=== PATIENT | female | born 1940 | race Caucasian/White ===

== ENCOUNTER 2021-02-26 05:32 | Outpatient (CLI) | payer MEDICARE ==
[~2021-02-26] VITALS: Ht 157.5 cm; Wt 81.3 kg
[2021-02-26] MEDS ORDERED: METO-333 PO (16:00)
[2021-02-26] MEDS ORDERED: CELE200C PO (16:00)
[2021-02-26] MEDS ORDERED: CLOP75TA69 PO (16:00)
[2021-02-26] MEDS ORDERED: ROSU10TA28 PO (16:00)
[2021-02-26] MEDS ORDERED: ACET325C7 PO (16:00)
[2021-02-26] MEDS ORDERED: PANT40SU PO (16:00)
== END 2021-02-26 16:52 | disposition home or self-care (01) ==
LOC: PREOP 05:32
PROVIDERS: ATTEND Otolaryngology Otolaryngology/Facial Plastic Surgery
DX: Z01.818 Encounter for other preprocedural examination (principal)

== ENCOUNTER 2021-03-07 07:27 | Observation (INO) | payer MEDICARE ==
[~2021-03-07] VITALS: Ht 158 cm; Wt 81.4 kg
[~2021-03-07 07:27] MED LIST: ACET325C7 PO; CELE200C PO; CLOP75TA69 PO; METO-333 PO; PANT40SU PO; ROSU10TA28 PO
[2021-03-07] MEDS ORDERED: ONDANSETRON 4 MG/2 ML (SDV) Z0FRAN ONE (07:28)
[2021-03-07] MEDS ORDERED: proPOfol 200 MG/20 ML (DIPRIVAN) VIAL IV ONE (07:28)
[2021-03-07] MEDS ORDERED: fentaNYL INJ 100 MCG/2 ML AMP ONE (07:28)
[2021-03-07] MEDS ORDERED: LIDOCAINE PF 2% 5 ML (XYLOCAINE) VIAL ONE (07:28)
[2021-03-07] MEDS ORDERED: SEVOFLURANE (ULTANE) 15 ML INHAL SOLN ONE (07:28)
[2021-03-07] MEDS ORDERED: LACTATED RINGERS 1,000 ML IV PRN (07:30)
[2021-03-07] MEDS ORDERED: ceFAZolin INJECTION 1,000 MG in WATER (STERILE) FOR INJECTION 10 ML IV ONE (07:30)
--- OUTSIDE RECORDS SUMMARY | 2021-03-07 07:30 | XMS REPORT | Clinical Summary ---
Author Author [facility] Organization 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
[2021-03-07 07:34] VITALS: BP 155/109
[2021-03-07 07:42] VITALS: BP 167/139
[2021-03-07] MEDS ORDERED: FAMOTIDINE 20MG/2ML IV (PEPCID) IV ONE (07:45)
[2021-03-07] MEDS ORDERED: ONDANSETRON 4 MG/2 ML (SDV) Z0FRAN IV ONE (07:45)
--- NOTE | 2021-03-07 07:46 | Progress Note-Pre Operative ---
Pre-Operative Progress Note H&P Reviewed The H&P was reviewed, patient examined and no changes noted. Date Seen by Provider: Mar 07, 2021 Time Seen by Provider: 07:45 Date H&P Reviewed: Mar 07, 2021 Time H&P Reviewed: 07:45 Pre-Operative Diagnosis: Excision of Recurrent Basal cEll of Nose BIMAL SAEED MD Mar 07, 2021 07:46
[2021-03-07] MEDS ORDERED: LIDOCAINE/EPI 1%-1:100,000 (XYLOCAINE) 20ML ONE (07:47)
[2021-03-07] MEDS ORDERED: MUPIROCIN 2% OINT 22 GM (BACTROBAN) TUBE ONE (07:47)
[2021-03-07] MEDS ORDERED: BSS 15 ML ONE (07:56)
[2021-03-07] MEDS ORDERED: ceFAZolin INJECTION 1,000 MG VIAL IV ONE (08:00)
[2021-03-07 08:12] VITALS: BP 130/113
[2021-03-07] MEDS ORDERED: ENOXAPARIN 100 MG/1 ML (LOVENOX) SYR SC SCH (08:15)
--- NOTE | 2021-03-07 08:19 | Progress Note ---
Standard Progress Note Progress Notes/Assess & Plan Date Seen by a Provider: Mar 07, 2021 Time Seen by a Provider: 08:15 Progress/Assessment & Plan ENT-Carter patient noted to have tachycrdai and increased blood pressure despite taking her metropolol this am. EKG-revealed new onset a. fib surgery cancelled-patient will be admitted for care DR Jamison consented to admit the patient to ICU and I talked with Dr Dalton Lovenox 1mg/kg given subcut and will keep patient NPO per DR Dalton once heart issues taken care of then can reconsider surgery at some point in the future Final Diagnosis new onset a fib with rvr and increased blood pressure BIMAL CARTER MD Mar 07, 2021 08:19
[2021-03-07] MEDS ORDERED: ENOXAPARIN 80 MG/0.8 ML (LOVENOX) SYR SC SCH (08:30)
[2021-03-07 08:52] VITALS: BP 113/96
[2021-03-07] MEDS ORDERED: dilTIAZem DRIP PRE-MIX 125 ML IV ONE (10:10)
--- NOTE | 2021-03-07 10:31 | Consultation-Cardiology ---
HPI-Cardiology Cardiology Consultation Date of Consultation 03/07/21 Date of Admission Time Seen by Provider: 10:26 Indication: Atrial fibrillation HPI 80 years old lady with history of hypertension, questionable history of TIA. Was scheduled for skin cancer excision on her nose, preoperative work-up showed atrial fibrillation with rapid ventricular response, patient reported that she tends to have palpitation on and off that are usually resolved with resting and taking a small nap. Has been having palpitation recently. Reported that she had a questionable TIA in the past that fully resolved, was not sure if it was related to medication or an actual TIA but she was placed on Plavix at that time. Full recovery, denied any similar episodes again. Denied any chest pain, no shortness of breath. Fairly active. Home Medications & Allergies Allergies: Coded Allergies: No Known Drug Allergies (Unverified , 02/26/21) Home Medication List Reviewed: Yes [id number] Hx Patient Social History Marital Status: Employed/Student: retired Recreational Drug Use: No Smoking Status: Never a Smoker 2nd Hand Smoke Exposure: No Recent Hopitalizations: No Immunizations Up To Date Tetanus Booster (TDap): Less than 5yrs Date of Pneumonia Vaccine: Feb 24, 2019 Date of Influenza Vaccine: Mar 03, 2021 Past Medical History Discussed below Family Medical History Family Medical Hx Noncontributory Review of Systems-General Review of Systems Constitutional: no symptoms reported, see HPI EENTM: see HPI, no symptoms reported Respiratory: no symptoms reported, see HPI Cardiovascular: see HPI; No chest pain, No edema, No Hx of Intervention; palpitations; No syncope, No vascular heart diseas, No other Gastrointestinal: no symptoms reported, see HPI Genitourinary: no symptoms reported, see HPI Musculoskeletal: no symptoms reported, see HPI Skin: no symptoms reported, see HPI Psychiatric/Neurological: No Symptoms Reported, See HPI Physical Exam Physical Exam Vital Signs Vital Signs - First Documented 03/07/21 07:34 Temp 35.8 Pulse 121 Resp 18 B/P (MAP) 155/109 (124) Pulse Ox 96 O2 Delivery Room Air Capillary Refill : Height, Weight, BMI Height: '" Weight: lbs. oz. kg; 32.56 BMI Method: General Appearance: No Apparent Distress, WD/WN Eyes: Bilateral Eye Normal Inspection, Bilateral Eye PERRL, Bilateral Eye EOMI HEENT: PERRL/EOMI, TMs Normal, Normal ENT Inspection, Pharynx Normal, Moist Mucous Membranes Neck: Full Range of Motion, Normal Inspection, Non Tender, Supple, Carotid Bruit Respiratory: Chest Non Tender, Normal Breath Sounds, No Accessory Muscle Use, No Respiratory Distress Cardiovascular: No Edema, No Gallop, No JVD, No Murmur, Normal Peripheral Pulses, Irregularly Irregular, Tachycardia Gastrointestinal: Normal Bowel Sounds, No Organomegaly, No Pulsatile Mass, Non Tender, Soft Back: Normal Inspection, No CVA Tenderness, No Vertebral Tenderness Extremity: Normal Capillary Refill, Normal Inspection, Normal Range of Motion, Non Tender, No Calf Tenderness, No Pedal Edema Neurologic/Psychiatric: Alert, Oriented x3, No Motor/Sensory Deficits, Normal Mood/Affect Skin: Normal Color, Warm/Dry Lymphatic: No Adenopathy A/P-Cardiology Admission Diagnosis Atrial fibrillation Hypertension Hyperlipidemia Palpitation Assessment/Plan Atrial fibrillation with rapid ventricular response of unknown duration, questionable paroxysmal atrial fibrillation. I had a long discussion with the patient explained to her her condition and the increased risk of stroke with atrial fibrillation. I will start her on Cardizem drip and low-dose beta-blockers and monitor hoping that she will convert to sinus rhythm We will consider EBONIE and electrical cardioversion in the morning if she did not convert tonight She was given Lovenox 80 mg earlier and I will start her on Eliquis 5 mg twice daily I will evaluate CBC, CMP, TSH, troponin, BNP, 2D echo [id number] score 4, yearly risk of stroke without oral anticoagulation is 4%, starting on oral anticoagulation with Eliquis 5 mg twice daily Questionable history of TIA in the remote past, if it was true cryptogenic stroke it would raise her [id number] score to 6. She was maintained on Plavix which will be discontinued and treated with Eliquis at this time Hypertension, starting Cardizem and metoprolol and monitor blood pressure Hyperlipidemia, monitor lipids Questionable skin cancer on the nose requiring excision which will be done once clinically stable CHRISTIAN CHAMORRO MD Mar 07, 2021 10:31
[2021-03-07 10:34] LABS: HEMOGLOBIN 13.9 g/dL (11.5-16.0); MEAN PLATELET VOLUME 12.4 fL (9.0-12.2); WHITE BLOOD COUNT 6.9 10^3/uL (4.3-11.0)
[2021-03-07] MEDS: dilTIAZem DRIP PRE-MIX 125 ML IV SCH ×2 (10:45→21:18)
[2021-03-07 10:50] LABS: INR 1.1 (0.8-1.4); PROTHROMBIN TIME PATIENT 14.5 SEC (12.2-14.7)
[2021-03-07 11:15] LABS: ALANINE AMINOTRANSFERASE 12 U/L (0-55); ALBUMIN 3.9 GM/DL (3.2-4.5); ALKALINE PHOSPHATASE 66 U/L (40-136); BILIRUBIN,TOTAL 1.1 MG/DL (0.1-1.0); BUN/CREATININE RATIO 20; CALCIUM 9.3 MG/DL (8.5-10.1); CARBON DIOXIDE 24 MMOL/L (21-32); CHLORIDE 110 MMOL/L (98-107); CREATININE SERUM 0.74 MG/DL (0.60-1.30); GFR ESTIMATED 76; GLUCOSE 93 MG/DL (70-105); POTASSIUM 4.4 MMOL/L (3.6-5.0); SODIUM 145 MMOL/L (135-145); TOTAL PROTEIN 6.7 GM/DL (6.4-8.2)
--- NOTE | 2021-03-07 11:20 | Tele-ICU Consult ---
History of Present Illness History of Present Illness Date Seen by Provider: Mar 07, 2021 Time Seen by Provider: 11:20 Date of Admission Reason for Visit: Atrial fibrillation History of Present Illness She is a 80-year-old female with past medical history of for hypertension, basal cell carcinoma of the nose and questionable history of TIA reportedly admitted to preop area for surgery on the nose. In the preoperative. She is found to have atrial fibrillation with rapid ventricular rate which is a newly discovered. Hence she is admitted to the ICU for close monitoring and management of her atrial fibrillation. Surgery was canceled. She denies any chest pain or short of breath. Reportedly her TIA completely resolved and she was placed on Plavix at that time but she is not on it. No previous history of pulmonary problems present Allergies and Home Medications Allergies Coded Allergies: No Known Drug Allergies (Unverified , 02/26/21) Home Medications Acetaminophen 325 Mg Capsule, 650 MG PO BID, (Reported) Celecoxib 200 Mg Capsule, 200 MG PO DAILY, (Reported) Clopidogrel Bisulfate 75 Mg Tablet, 75 MG PO DAILY, (Reported) Metoprolol Tartrate 25 Mg Tablet, 25 MG PO DAILY, (Reported) Pantoprazole Sodium 40 Mg Granpkt.dr, 40 MG PO DAILY, (Reported) Rosuvastatin Calcium 10 Mg Tablet, 10 MG PO HS, (Reported) Past Medical/Social/Family Hx Patient Social History Marrital Status: Employed/Student: retired Smoking Status: Never a Smoker Immunizations Up To Date First/Initial COVID19 Vaccinat: 06/13/2020 Second COVID19 Vaccination Lai: 07/11/2020 Date of Pneumonia Vaccine: Feb 24, 2019 Review of Systems Constitutional: see HPI Other ros per attending physician Sepsis Event Evaluation Height, Weight, BMI Height: '" Weight: lbs. oz. kg; 32.56 BMI Method: Exam Exam Patient acknowledged, consented, and participated in this virtual visit which was conducted using real time audio/video Vital Signs Date Time Temp Pulse Resp B/P (MAP) Pulse Ox O2 Delivery O2 Flow Rate FiO2 03/07/21 11:00 76 12 117/65 Room Air 03/07/21 10:00 115 10 121/99 Room Air 03/07/21 09:18 121 03/07/21 09:00 125 15 133/99 96 Room Air 03/07/21 08:52 35.8 114 18 113/96 (102) 96 Room Air 03/07/21 08:12 35.8 134 18 130/113 (119) 96 Room Air 03/07/21 07:42 35.8 126 18 167/139 (148) 96 Room Air 03/07/21 07:34 35.8 121 18 155/109 (124) 96 Room Air Height & Weight Height: '" Weight: lbs. oz. kg; 32.56 BMI Method: General Appearance: No Apparent Distress, WD/WN HEENT: PERRL/EOMI, TMs Normal, Normal ENT Inspection, Pharynx Normal, Moist Mucous Membranes Neck: Full Range of Motion, Normal Inspection, Non Tender, Supple, Carotid Bruit Respiratory: Chest Non Tender, Normal Breath Sounds, No Accessory Muscle Use, No Respiratory Distress Cardiovascular: No Edema, No Gallop, No JVD, No Murmur, Normal Peripheral Pulses, Irregularly Irregular, Tachycardia Extremity: Normal Capillary Refill, Normal Inspection, Normal Range of Motion, Non Tender, No Calf Tenderness, No Pedal Edema Neurologic/Psychiatric: Alert, Oriented x3, No Motor/Sensory Deficits, Normal Mood/Affect Skin: Normal Color, Warm/Dry Lymphatic: No Adenopathy Other comments PE PER ATTENDING PHYSICIAN Results Lab Laboratory Tests 03/07/21 10:05 Assessment/Plan Assessment/Plan 1. Newly discovered atrial fibrillation with rapid ventricular rate 2. Hypertension 3. Basal cell carcinoma of the nose 4. Hyperlipidemia 5. History of TIA resolved. Recommendations 1. Continue Cardizem drip per cardiology. 2. Echocardiogram 3. Any anticoagulation per cardiology service. 4. Suggest to get a TSH and free T4. Critical Care: Critically Ill Patient Time spent with patient (mins): 35 DARRELL PICKENS MD Mar 07, 2021 11:20
[2021-03-07] MEDS: PANTOPRAZOLE 40 MG (PROTONIX) TAB PO SCH (11:44)
--- NOTE | 2021-03-07 12:55 | History & Physical-Hospitalist ---
History of Present Illness HPI/Chief Complaint Lucia Herrera is an 80 year old female with PMH HTN, HLD, who presented to the surgery center for an outpatient procedure and was found to be in atrial fibrillation with rapid ventricular response. She reports that she has had this feeling of palpitations several times in the past. It happens when she is stressed. She denies chest pain. She denies shortness of breath. She was in her normal state of health prior to her arrival. She denies fevers and chills. She reports having a history of a "mini-stroke". She takes Plavix daily. She has no history of diagnosed atrial fibrillation and does not take a blood thinner. Source: patient Exam Limitations: no limitations Date Seen 03/07/21 Time Seen by a Provider: 10:10 Attending Physician Jordy Carter MD PCP Erasto Small MD Referring Physician Date of Admission Home Medications & Allergies Home Medications Reviewed patient Home Medication Reconciliation performed by pharmacy medication reconciliations maintenance service technician and/or nursing. Patients Allergies have been reviewed. Allergies Allergies Coded Allergies No Known Drug Allergies ([id number]/3/21) Past [id number] Hx Patient Social History Marrital Status: Employed/Student: retired Smoking Status: Never a Smoker Immunizations Up To Date Date of Influenza Vaccine: Mar 03, 2021 First/Initial COVID19 Vaccinat: 06/13/2020 Second COVID19 Vaccination Lai: 07/11/2020 Date of Pneumonia Vaccine: Feb 24, 2019 Seasonal Allergies Seasonal Allergies: Yes Past Medical History Surgeries: Orthopedic Asthma Currently Using CPAP: No Currently Using BIPAP: No High Cholesterol, Hypertension, Irregular Heartbeat, Palpitations, Syncope Headaches /Migraines 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 Gastroesophageal Reflux Arthritis Loss of Vision: Bilateral Hearing Impairment: Denies Skin Did You Recieve Any Treatments: Yes What Type of Treatment Did You: Surgical Intervention SQUAMOUS CELL 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, SURGICAL EXCISION Anxiety, Depression Recent Skin Changes Blood Disorders: No Family Medical History No Pertinent Family Hx Review of Systems Constitutional: no symptoms reported EENTM: no symptoms reported Respiratory: no symptoms reported Cardiovascular: palpitations Gastrointestinal: no symptoms reported Genitourinary: no symptoms reported Musculoskeletal: no symptoms reported Skin: no symptoms reported Psychiatric/Neurological: No Symptoms Reported Physical Exam Physical Exam Vital Signs Vital Signs - First Documented 03/07/21 07:34 Temp 35.8 Pulse 121 Resp 18 B/P (MAP) 155/109 (124) Pulse Ox 96 O2 Delivery Room Air Capillary Refill : Height, Weight, BMI Height: '" Weight: lbs. oz. kg; 32.56 BMI Method: General Appearance: No Apparent Distress, Anxious, Obese HEENT: PERRL/EOMI, Pharynx Normal Neck: Normal Inspection, Supple Respiratory: Lungs Clear, Normal Breath Sounds, No Respiratory Distress Cardiovascular: No Murmur, Irregularly Irregular, Tachycardia Gastrointestinal: Normal Bowel Sounds, Non Tender, Soft Extremity: Normal Inspection, Non Tender, No Pedal Edema Neurologic/Psychiatric: Alert, Oriented x3, No Motor/Sensory Deficits Skin: Normal Color, Warm/Dry Results Results/Procedures Labs Laboratory Tests 03/07/21 10:05 Patient resulted labs reviewed. Assessment/Plan Admission Diagnosis Atrial fibrillation with rapid ventricular response Admission Status: Inpatient Order (span 2 midnights) Reason for Inpatient Admission: IV antiarrhythmics Assessment and Plan New onset AFib with RVR TeleICU consulted Cardiology consulted Starting IV Diltiazem Begin Eliquis Echo ordered HTN Hold metoprolol HLD Continue statin Obesity Clinically significant, no acute management needs DVT prophylaxis: already receiving therapeutic anticoagulation Diagnosis/Problems Diagnosis/Problems (1) Atrial fibrillation with rapid ventricular response Status: Acute (2) HTN (hypertension) Status: Chronic (3) HLD (hyperlipidemia) Status: Chronic (4) Obesity Status: Chronic MARIBEL OCHOA MD Mar 07, 2021 12:55
[2021-03-07] MEDS: APIXABAN 5 MG (ELIQUIS) TABLET PO SCH (20:57)
[2021-03-07] MEDS ORDERED: ROSUVASTATIN 10 MG (CRESTOR) TABLET PO SCH (21:00)
[2021-03-07] MEDS ORDERED: ACETAMINOPHEN 325 MG TABLET PO PRN (21:45)
[2021-03-08 05:20] LABS: EOSINOPHILS # (AUTO) 0.2 10^3/uL (0.0-0.3); EOSINOPHILS % (AUTO) 3 % (0-10); MEAN CORPUSCULAR VOLUME 98 fL (80-99)
[2021-03-08 05:23] LABS: BASOPHILS % (AUTO) 1 % (0-10); HEMATOCRIT 42 % (35-52); HEMOGLOBIN 13.2 g/dL (11.5-16.0); LYMPHOCYTES # (AUTO) 2.2 10^3/uL (1.0-4.0); LYMPHOCYTES % (AUTO) 33 % (12-44); MEAN CORPUSCULAR HEMOGLOBIN 31 pg (25-34); MEAN CORPUSCULAR HGB CONC 32 g/dL (32-36); MEAN PLATELET VOLUME 12.3 fL (9.0-12.2); MONOCYTES # (AUTO) 0.5 10^3/uL (0.0-1.0); MONOCYTES % (AUTO) 8 % (0-12); NEUTROPHILS # (AUTO) 3.6 10^3/uL (1.8-7.8); NEUTROPHILS % (AUTO) 56 % (42-75); PLATELET COUNT 118 10^3/uL (130-400); WHITE BLOOD COUNT 6.5 10^3/uL (4.3-11.0)
[2021-03-08 05:31] LABS: POTASSIUM 4.2 MMOL/L (3.6-5.0)
[2021-03-08 05:37] LABS: CREATININE SERUM 0.74 MG/DL (0.60-1.30); PHOSPHORUS 3.5 MG/DL (2.3-4.7)
[2021-03-08 05:39] LABS: MAGNESIUM 1.8 MG/DL (1.6-2.4)
[2021-03-08] MEDS ORDERED: KCL 20 MEQ TAB (K-DUR) PO SCH (06:00)
[2021-03-08] MEDS ORDERED: MAGNESIUM 1 GM/100 ML IVPB 100 ML IV SCH (06:00)
[2021-03-08] MEDS ORDERED: POTASSIUM CL 10MEQ/50ML IVPB 50 ML IV SCH (06:00)
--- NOTE | 2021-03-08 08:34 | Cardiology Progress Note ---
Subjective Date Seen by Provider: Mar 08, 2021 Time Seen by Provider: 08:33 Subjective/Events-last exam Patient was seen and evaluated, laying down in bed, feeling well. No new complaint Still in atrial fibrillation. Review of Systems General: No Chills, No Night Sweats, No Fatigue, No Malaise, No Appetite, No Other HEENT: No Head Aches, No Visual Changes, No Eye Pain, No Ear Pain, No Dysphasia, No Sinus Congestion, No Post Nasal Drip, No Sore Throat, No Other Pulmonary: No Dyspnea, No Cough, No Pleuritic Chest Pain, No Other Cardiovascular: No: Chest Pain, Palpitations, Orthopnea, Paroxysmal Noc. Dyspnea, Edema, Lt Headedness, Other Objective-Cardiology Exam Last Set of Vital Signs Vital Signs 03/08/21 03/08/21 07:58 08:00 Temp 36.5 Pulse 67 Resp 11 B/P (MAP) 134/76 Pulse Ox 96 O2 Delivery Room Air I&O Intake and Output 03/08/21 00:00 Intake Total 375 ml Output Total 450 ml Balance -75 ml Intake Oral 150 ml IV Total 225 ml Output Urine Total 450 ml General: Alert, Oriented X3, Cooperative HEENT: Atraumatic, PERRLA Neck: Supple, No JVD, No Thyromegaly Lungs: Clear to Auscultation, Normal Air Movement Heart: Normal S1, Normal S2, No Murmurs, Other (Atrial fibrillation) Abdomen: Normal Bowel Sounds, Soft, No Tenderness, No Hepatosplenomegaly, No Masses Extremities: No Clubbing, No Cyanosis, No Edema, Normal Pulses, No Tenderness/Swelling Skin: No Rashes, No Breakdown, No Significant Lesion Neuro: Normal Gait, Normal Speech, Strength at 5/5 X4 Ext, Normal Tone, Sensation Intact Psych/Mental Status: Mental Status NL, Mood NL Results Lab Laboratory Tests 03/07/21 10:05 03/08/21 05:11 A/P-Cardiology Admission Diagnosis Atrial fibrillation Hypertension Hyperlipidemia Palpitation Assessment/Plan Paroxysmal atrial fibrillation, probably underlying persistent fibrillation, patient is still in atrial fibrillation with controlled rate. Reporting that she has been having palpitation on and off for a long period of time. Rate is controlled on Cardizem, I will switch to oral Cardizem CD 120 mg daily and continue on Toprol We discussed the possibility of EBONIE and cardioversion, patient does not want the procedure done, preferred conservative management, we will continue with rate control medication and oral anticoagulation [id number] score 4, yearly risk of stroke without oral anticoagulation is 4%, starting on oral anticoagulation with Eliquis 5 mg twice daily Questionable history of TIA in the remote past, if it was true cryptogenic stroke it would raise her [id number] score to 6. She was maintained on Plavix which will be discontinued and treated with Eliquis at this time Hypertension, continue on Cardizem and Toprol and monitor as an outpatient Hyperlipidemia, monitor lipids Questionable skin cancer on the nose requiring excision which will be done once clinically stable CHRISTIAN CHAMORRO MD Mar 08, 2021 08:34
[2021-03-08] MEDS: PANTOPRAZOLE 40 MG (PROTONIX) TAB PO SCH (09:00)
[2021-03-08] MEDS: APIXABAN 5 MG (ELIQUIS) TABLET PO SCH (09:00)
[2021-03-08] MEDS ORDERED: dilTIAZem120 MG (CARDIZEM CD) CAP PO SCH ×2 (09:00)
--- NOTE | 2021-03-08 09:19 | Tele-ICU Progress Note ---
Subjective Date Seen by a Provider: Mar 08, 2021 Time Seen by a Provider: 09:18 Subjective/Events-last exam Patient today is feeling much better. No chest pain shortness of breath or palpitations present. Today her heart rate is controlled which is in the mid 60s. She is started on oral Cardizem and the drip will be discontinued pretty soon. If she continues to stable this afternoon she may be transferred out of the ICU. Sepsis Event Evaluation Height, Weight, BMI Height: '" Weight: lbs. oz. kg; 32.56 BMI Method: Exam Exam Patient acknowledged, consented, and participated in this virtual visit which was conducted using real time audio/video Vital Signs Date Time Temp Pulse Resp B/P (MAP) Pulse Ox O2 Delivery O2 Flow Rate FiO2 03/08/21 08:00 67 11 134/76 96 Room Air 03/08/21 07:58 36.5 03/08/21 07:45 67 126/81 03/08/21 07:30 Room Air 03/08/21 07:30 59 27 124/86 96 03/08/21 07:15 63 11 108/75 95 03/08/21 07:00 56 03/08/21 07:00 60 122/85 Room Air 03/08/21 06:45 63 23 129/77 94 03/08/21 06:30 72 13 135/75 95 03/08/21 06:15 65 12 128/88 97 03/08/21 06:00 69 15 110/89 97 Room Air 03/08/21 05:45 63 17 129/81 93 Room Air 03/08/21 05:30 66 18 128/79 95 Room Air 03/08/21 05:15 63 19 120/92 94 Room Air 03/08/21 05:00 71 20 136/82 94 Room Air 03/08/21 04:45 72 21 95 Room Air 03/08/21 04:30 64 12 138/74 96 Room Air 03/08/21 04:15 68 16 104/63 95 Room Air 03/08/21 04:00 36.6 03/08/21 04:00 65 17 111/65 94 Room Air 03/08/21 04:00 Room Air 03/08/21 03:45 72 14 103/71 94 Room Air 03/08/21 03:30 69 16 104/61 95 Room Air 03/08/21 03:15 63 16 106/57 93 Room Air 03/08/21 03:00 68 17 111/62 93 Room Air 03/08/21 02:45 67 111/63 95 Room Air 03/08/21 02:30 63 17 127/71 94 Room Air 03/08/21 02:15 61 16 106/59 94 Room Air 03/08/21 02:00 67 16 110/59 94 Room Air 03/08/21 01:45 69 16 109/44 95 Room Air 03/08/21 01:30 57 13 86/60 95 Room Air 03/08/21 01:15 71 19 101/48 95 Room Air 03/08/21 01:00 70 03/08/21 01:00 66 16 126/71 91 Room Air 03/08/21 00:45 66 15 115/59 91 Room Air 03/08/21 00:30 65 15 83/49 90 Room Air 03/08/21 00:15 66 17 81/55 93 Room Air 03/08/21 00:00 36.1 03/08/21 00:00 67 12 102/45 95 Room Air 03/07/21 23:45 69 18 104/64 95 Room Air 03/07/21 23:30 56 19 142/58 94 Room Air 03/07/21 23:26 Room Air 03/07/21 23:15 64 17 140/69 93 Room Air 03/07/21 23:00 51 18 123/74 94 Room Air 03/07/21 22:45 56 19 127/76 94 Room Air 03/07/21 22:30 58 15 133/71 95 Room Air 03/07/21 22:15 52 16 109/65 96 Room Air 03/07/21 22:00 57 17 109/65 95 Room Air 03/07/21 21:45 58 18 103/57 95 Room Air 03/07/21 21:30 58 18 121/58 95 Room Air 03/07/21 21:15 58 21 129/67 95 Room Air 03/07/21 21:00 55 25 119/71 95 Room Air 03/07/21 20:45 59 17 108/48 93 Room Air 03/07/21 20:30 63 19 108/48 95 Room Air 03/07/21 20:15 58 10 94/51 96 Room Air 03/07/21 20:00 57 17 103/61 94 Room Air 03/07/21 20:00 Room Air 03/07/21 20:00 36.3 03/07/21 19:45 53 18 94/49 94 Room Air 03/07/21 19:30 59 20 108/70 95 Room Air 03/07/21 19:15 62 18 114/55 94 Room Air 03/07/21 19:00 59 03/07/21 19:00 74 20 89/72 96 Room Air 03/07/21 18:00 66 17 125/94 96 Room Air 03/07/21 17:00 87 19 115/70 94 Room Air 03/07/21 16:45 58 19 123/52 94 03/07/21 16:30 49 10 107/53 95 03/07/21 16:15 65 20 115/48 93 03/07/21 16:00 Room Air 03/07/21 16:00 58 16 112/60 94 Room Air 03/07/21 16:00 36.5 03/07/21 15:45 58 13 115/73 95 03/07/21 15:30 52 23 108/57 94 03/07/21 15:15 63 19 119/65 95 03/07/21 15:00 62 12 124/54 96 Room Air 03/07/21 14:45 61 12 115/73 95 03/07/21 14:30 62 15 113/56 94 03/07/21 14:15 64 19 100/59 94 03/07/21 14:00 60 20 118/68 95 Room Air 03/07/21 13:45 77 17 110/82 95 03/07/21 13:30 71 16 123/79 95 03/07/21 13:15 65 15 129/62 96 03/07/21 13:00 72 18 124/72 94 Room Air 03/07/21 12:56 64 03/07/21 12:45 62 10 122/66 95 03/07/21 12:30 64 19 110/67 94 03/07/21 12:15 109/71 03/07/21 12:00 36.8 03/07/21 12:00 71 15 111/95 94 Room Air 03/07/21 12:00 Room Air 03/07/21 11:45 77/55 03/07/21 11:30 73 13 125/54 03/07/21 11:15 70 17 128/63 03/07/21 11:00 76 12 117/65 Room Air 03/07/21 10:45 78 13 132/104 03/07/21 10:30 75 32 117/84 03/07/21 10:15 105 12 121/99 03/07/21 10:00 115 10 121/99 Room Air 03/07/21 09:45 122 13 03/07/21 09:30 Room Air 03/07/21 09:30 110 12 134/116 96 I & O 03/08/21 07:00 Intake Total 375 ml Output Total 740 ml Balance -365 ml Height & Weight Height: '" Weight: lbs. oz. kg; 32.56 BMI Method: General Appearance: No Apparent Distress, Anxious, Obese HEENT: PERRL/EOMI, Pharynx Normal Neck: Normal Inspection, Supple Respiratory: Lungs Clear, Normal Breath Sounds, No Respiratory Distress Cardiovascular: No Murmur, Irregularly Irregular, Tachycardia Extremity: Normal Inspection, Non Tender, No Pedal Edema Neurologic/Psychiatric: Alert, Oriented x3, No Motor/Sensory Deficits Skin: Normal Color, Warm/Dry Lymphatic: No Adenopathy Other comments PE PER ATTENDING PHYSICIAN Results Lab Laboratory Tests 03/07/21 10:05 03/08/21 05:11 Meds REVIEWED Assessment/Plan Assessment/Plan 1. Newly discovered atrial fibrillation with rapid ventricular rate now under control 2. Hypertension stable 3. Basal cell carcinoma of the nose 4. Hyperlipidemia 5. History of TIA resolved. Recommendations 1. oral cardiazem started and wean off iv Cardizem. 2. Echocardiogram 3. Any anticoagulation per cardiology service. 4. Her tsh is ok 5. ok to transfer to [facility] from critical care point of view. Critical Care: Critically Ill Patient Time spent with patient (mins): 25 DARRELL PICKENS MD Mar 08, 2021 09:19
[2021-03-08] MEDS ORDERED: APIX5TAB PO (12:13)
[2021-03-08] MEDS ORDERED: DILT-27 PO (12:13)
--- NOTE | 2021-03-08 20:48 | Discharge Summary ---
Discharge Summary Hospital Course Was the Problem List Reviewed?: Yes Problems/Dx: (1) Atrial fibrillation with rapid ventricular response Status: Acute (2) HTN (hypertension) Status: Chronic (3) HLD (hyperlipidemia) Status: Chronic (4) Obesity Status: Chronic Hospital Course Date of Admission: Mar 08, 2021 at 10:09 Admission Diagnosis : Paroxysmal atrial fibrillation with rapid ventricular response Family Physician/Provider: Erasto Small MD Date of Discharge: 03/08/21 Discharge Diagnosis: Paroxysmal atrial fibrillation with rapid ventricular response Hospital Course: Lucia Herrera is an 80 year old female who presented for an elective outpatient procedure to remove a basal cell carcinoma from her nose and was found to be in AFib with RVR. She was admitted to the ICU. Cardiology was consulted. She was placed on IV Cardizem. She was started on Eliquis. Her rates improved and she was transitioned to oral Cardizem. She was discharged home in stable condition. She should establish care with a anesthesiology teacher closer to her home or follow up with Dr. Dalton in his clinic. She should follow up with her PCP. Labs and Pending Lab Test: Laboratory Tests 03/08/21 05:11: White Blood Count 6.5, Red Blood Count 4.26, Hemoglobin 13.2, Hematocrit 42, Mean Corpuscular Volume 98, Mean Corpuscular Hemoglobin 31, Mean Corpuscular Hemoglobin Concent 32, Red Cell Distribution Width 12.7, Platelet Count 118L, Mean Platelet Volume 12.3H, Immature Granulocyte % (Auto) 0, Neutrophils (%) (Auto) 56, Lymphocytes (%) (Auto) 33, Monocytes (%) (Auto) 8, Eosinophils (%) (Auto) 3, Basophils (%) (Auto) 1, Neutrophils # (Auto) 3.6, Lymphocytes # (Auto) 2.2, Monocytes # (Auto) 0.5, Eosinophils # (Auto) 0.2, Basophils # (Auto) 0.0, Immature Granulocyte # (Auto) 0.0, Percent Immature Platelet Fraction 6.5, Sodium Level 142, Potassium Level 4.2, Chloride Level 111H, Carbon Dioxide Level 20L, Anion Gap 11, Blood Urea Nitrogen 21H, Creatinine 0.74, Estimat Glomerular Filtration Rate 76, BUN/Creatinine Ratio 28, Glucose Level 106H, Calcium Level 9.0, Phosphorus Level 3.5, Magnesium Level 1.8 Microbiology 11/12/21 MRSA Screen - Final, Complete MRSA not isolated Home Meds Active Diltiazem 24Hr ER (Diltiazem HCl) 120 Mg Cap.er.24h 120 Mg PO DAILY 30 Days Eliquis (Apixaban) 5 Mg Tablet 5 Mg PO BID 30 Days Reported Rosuvastatin Calcium 10 Mg Tablet 10 Mg PO HS Tylenol (Acetaminophen) 325 Mg Capsule 650 Mg PO BID Protonix (Pantoprazole Sodium) 40 Mg Granpkt.dr 40 Mg PO DAILY Metoprolol Tartrate 25 Mg Tablet 25 Mg PO DAILY Celebrex (Celecoxib) 200 Mg Capsule 200 Mg PO DAILY Plavix (Clopidogrel Bisulfate) 75 Mg Tablet 75 Mg PO DAILY Assessment/Pt Instructions Take medications as prescribed. Follow up with your PCP. Return with worsening symptoms. Discharge Planning: <30 minutes discharge planning Discharge Instructions Discharge Diet: No Restrictions Activity as Tolerated: Yes Consultations Cardiology Discharge Physical Examination Vital Signs Vital Signs Date Time Temp Pulse Resp B/P (MAP) Pulse Ox O2 Delivery O2 Flow Rate FiO2 03/08/21 12:30 03/08/21 12:00 75 13 Room Air 03/08/21 11:34 36.8 03/08/21 10:00 95 General Appearance: No Apparent Distress, Obese Respiratory: Lungs Clear, Normal Breath Sounds, No Respiratory Distress Cardiovascular: No Murmur, Irregularly Irregular Gastrointestinal: Normal Bowel Sounds, Non Tender, Soft Extremity: Normal Inspection, Non Tender, No Pedal Edema Skin: Normal Color, Warm/Dry Neurologic/Psychiatric: Alert, Oriented x3, No Motor/Sensory Deficits, Normal Mood/Affect Allergies: Coded Allergies: No Known Drug Allergies (Unverified , 02/26/21) Discharge Summary Date of Admission Mar 08, 2021 at 10:09 Date of Discharge Mar 08, 2021 at 13:00 Discharge Date: Mar 08, 2021 Discharge Time: 13:00 Admission Diagnosis Atrial fibrillation with rapid ventricular response Consults/Procedures Consulations Cardiology Discharge Diagnosis New onset AFib with RVR (1) Atrial fibrillation with rapid ventricular response Status: Acute (2) HTN (hypertension) Status: Chronic (3) HLD (hyperlipidemia) Status: Chronic (4) Obesity Status: Chronic MARIBEL OCHOA MD Mar 08, 2021 20:48
== END 2021-03-08 13:00 | disposition home or self-care (01) ==
LOC: SDC 07:27 → ICU 09:06 → SDC 03-08 10:09 → ICU 03-08 10:09
PROVIDERS: ADMIT Internal Medicine; ATTEND Internal Medicine
DX: I48.20 Chronic atrial fibrillation, unspecified (principal); E78.5 Hyperlipidemia, unspecified; E66.9 Obesity, unspecified; C44.311 Basal cell carcinoma of skin of nose; I11.9 Hypertensive heart disease without heart failure; I08.0 Rheumatic disorders of both mitral and aortic valves; K21.9 Gastro-esophageal reflux disease without esophagitis; M19.90 Unspecified osteoarthritis, unspecified site; F41.9 Anxiety disorder, unspecified; F32.A Depression, unspecified; I45.2 Bifascicular block; Z79.899 Other long term (current) drug therapy; Z79.01 Long term (current) use of anticoagulants; Z79.02 Long term (current) use of antithrombotics/antiplatelets; Z79.1 Long term (current) use of non-steroidal anti-inflammatories (NSAID); Z68.32 Body mass index [BMI] 32.0-32.9, adult
CPT/HCPCS: 36415; 80048; 80053; 83735; 83880; 84100; 84443; 84484; 85025; 85027; 85610; 85730; 87081; 93005; 93306; G0378